=== PATIENT | male | born 1990 | race Caucasian/White ===

== ENCOUNTER 2016-12-11 10:09 | Emergency (ER) | payer SELFPAY ==
[~2016-12-11] VITALS: Ht 180.3 cm; Wt 78.0 kg
[~2016-12-11 10:09] MED LIST: BACT800T5 PO
[2016-12-11 10:21] VITALS: BP 132/69; PULSE 72; RESP 13; TEMP 98.9; O2SAT 98
[2016-12-11 10:46] LABS: AUTOMATED NEUTROPHIL # 6.7 TH/MM3 (1.8-7.7); BASOPHIL # 0.1 TH/MM3 (0-0.2); BASOPHIL % 0.6 % (0.0-2.0); EOSINOPHIL # 0.3 TH/MM3 (0-0.4); EOSINOPHIL % 3.4 % (0.0-4.0); HEMATOCRIT 41.8 % (39.0-51.0); HEMO FLAGS DIFF FINAL; LYMPHOCYTE # 1.5 TH/MM3 (1.0-4.8); MEAN CELL VOLUME 84.2 FL (80.0-100.0); MEAN CORPUSCULAR HEMOGLOBIN 29.7 PG (27.0-34.0); MEAN CORPUSCULAR HGB CONC 35.3 % (32.0-36.0); MONO % 10.5 % (0.0-8.0); NEUT % 69.5 % (16.0-70.0); PLATELET COUNT 297 TH/MM3 (150-450); RED BLOOD COUNT 4.96 MIL/MM3 (4.50-5.90); RED CELL DISTRIBUTION WIDTH 13.1 % (11.6-17.2); WHITE BLOOD COUNT 9.6 TH/MM3 (4.0-11.0)
[2016-12-11 11:11] LABS: ALT (GPT) 67 U/L (12-78); ANION GAP 7 MEQ/L (5-15); AST (GOT) 32 U/L (15-37); BICARBONATE 27.2 MEQ/L (21.0-32.0); BLOOD UREA NITROGEN 25 MG/DL (7-18); CHLORIDE 105 MEQ/L (98-107); GLOMERULAR FILTRATION RATE 95 ML/MIN (>89); POTASSIUM 4.1 MEQ/L (3.5-5.1); SODIUM (NA) 139 MEQ/L (136-145)
[2016-12-11 11:13] LABS: ALCOHOL LESS THAN 3 MG/DL (0-5)
[2016-12-11 11:14] LABS: ALKALINE PHOSPHATASE 114 U/L (45-117); TOTAL BILIRUBIN ADULT 0.4 MG/DL (0.2-1.0)
--- NOTE | 2016-12-11 11:34 | PD ---
HPI Chief Complaint: Psychiatric Symptoms Time Seen by Provider: 10:18 Travel History International Travel<30 days: No Contact w/Intl Traveler<30days: No Traveled to known affect area: No History of Present Illness HPI This is a 26-year-old male who presents to the emergency department having reportedly told police that he was depressed and wanted to drive a car into the river. The patient reports that he hasn't slept all night as he was binging on cocaine and heroin. He says he is not depressed and doesn't want to kill himself and he just needs to get some sleep. He has evidently been under a lot of stress because he lost custody of his son. PFSH Past Medical History Medical History: Denies Significant Hx Anxiety: No Depression: No Cardiovascular Problems: No Gastrointestinal Disorders: No Genitourinary: No Musculoskeletal: No Neurologic: No Psychiatric: No Reproductive: No Respiratory: No Thyroid Disease: Yes (HYPOTHRYOIDISM) Tetanus Vaccination: Unknown Past Surgical History Surgical History: No Previous Surgery Social History Alcohol Use: Yes ("WEEKENDS") Tobacco Use: Yes (1 PPD) Substance Use: Yes (IV COCAINE, MORPHINE, OXYCODONE 01/20: STATES: MARIJUANA ONCE A WEEK) Allergies-Medications (Allergen,Severity, Reaction): Coded Allergies: No Known Allergies (Verified , 12/11/16) Reported Meds & Prescriptions Reported Meds & Active Scripts Active No Active Prescriptions or Reported Medications Review of Systems Except as stated in HPI: all other systems reviewed are Neg Physical Exam Narrative GENERAL:Well appearing, no acute distress SKIN: Focused skin assessment warm and dry. HEAD: Atraumatic. Normocephalic. EYES: Pupils equal and round. No injection or drainage. ENT: Moist mucous membranes NECK: Trachea midline. CARDIOVASCULAR: Regular rate and rhythm. No murmur appreciated. RESPIRATORY: Clear to auscultation. Breath sounds equal bilaterally. GASTROINTESTINAL: Abdomen soft, non-tender, nondistended. MUSCULOSKELETAL: No obvious deformities. NEUROLOGICAL: Awake and alert. No obvious cranial nerve deficits. Moving all extremities. PSYCHIATRIC: Appropriate mood and affect; insight and judgment normal. Data Data Last Documented VS Vital Signs Date Time Temp Pulse Resp B/P (MAP) Pulse Ox O2 Delivery O2 Flow Rate FiO2 12/11/16 13:33 80 15 143/69 (93) 100 Room Air 12/11/16 10:21 98.9 Orders Orders Complete Blood Count With Diff (12/11/16 10:18) Comprehensive Metabolic Panel (12/11/16 10:18) Alcohol (Ethanol) (12/11/16 10:18) Drug Screen, Random Urine (12/11/16 10:18) Psych Screen (12/11/16 11:07) Labs Laboratory Tests Test 12/11/16 10:33 12/11/16 13:50 White Blood Count 9.6 TH/MM3 Red Blood Count 4.96 MIL/MM3 Hemoglobin 14.7 GM/DL Hematocrit 41.8 % Mean Corpuscular Volume 84.2 FL Mean Corpuscular Hemoglobin 29.7 PG Mean Corpuscular Hemoglobin Concent 35.3 % Red Cell Distribution Width 13.1 % Platelet Count 297 TH/MM3 Mean Platelet Volume 8.1 FL Neutrophils (%) (Auto) 69.5 % Lymphocytes (%) (Auto) 16.0 % Monocytes (%) (Auto) 10.5 % Eosinophils (%) (Auto) 3.4 % Basophils (%) (Auto) 0.6 % Neutrophils # (Auto) 6.7 TH/MM3 Lymphocytes # (Auto) 1.5 TH/MM3 Monocytes # (Auto) 1.0 TH/MM3 Eosinophils # (Auto) 0.3 TH/MM3 Basophils # (Auto) 0.1 TH/MM3 CBC Comment DIFF FINAL Differential Comment Blood Urea Nitrogen 25 MG/DL Creatinine 0.96 MG/DL Random Glucose 111 MG/DL Total Protein 7.0 GM/DL Albumin 3.5 GM/DL Calcium Level 8.7 MG/DL Alkaline Phosphatase 114 U/L Aspartate Amino Transf (AST/SGOT) 32 U/L Alanine Aminotransferase (ALT/SGPT) 67 U/L Total Bilirubin 0.4 MG/DL Sodium Level 139 MEQ/L Potassium Level 4.1 MEQ/L Chloride Level 105 MEQ/L Carbon Dioxide Level 27.2 MEQ/L Anion Gap 7 MEQ/L Estimat Glomerular Filtration Rate 95 ML/MIN Ethyl Alcohol Level LESS THAN 3 MG/DL Urine Opiates Screen POS Urine Barbiturates Screen NEG Urine Amphetamines Screen NEG Urine Benzodiazepines Screen NEG Urine Cocaine Screen POS Urine Cannabinoids Screen NEG MDM Medical Decision Making Medical Screen Exam Complete: Yes Emergency Medical Condition: Yes Differential Diagnosis Adjustment reaction, substance induced mood disorder, depression Narrative Course This is a 26-year-old male who presents the emergency department under a Jasmine act by police because he told them he wanted to drive his car into a river. Patient denies this and says is not depressed he just is tired because he use drugs all night. I think patient is safe for discharge. I don't think he meets Jasmine act criteria. He has capacity to make his own decisions and he denies suicidal or homicidal ideation at this time. Patient was seen by psychiatry who agrees. Diagnosis Primary Impression: Substance induced mood disorder Patient Instructions: General Instructions Additional Instructions: Follow up with [facility] in regards to psychiatric or substance related issues at: [address] [place], [place] [id number] Med/Other Pt SpecificInfo: No Change to Meds Scripts No Active Prescriptions or Reported Meds Disposition: 01 DISCHARGE HOME Condition: Stable Jessica Hinson MD Dec 11, 2016 11:34
[2016-12-11 13:33] VITALS: BP 143/69; PULSE 80; RESP 15; O2SAT 100
--- NOTE | 2016-12-11 14:10 | PD ---
History of Present Illness Chief Complaint: Psychiatric Symptoms Time Seen by Provider: 14:00 Travel History International Travel<30 Days: No Contact w/Intl Traveler<30days: No Known affected area: No Legal Status Legal Status: Jasmine Act History of Present Illness: 26-year-old male brought in under a Jasmine act for making suicidal threats to law enforcement officers. Patient was apparently binging on cocaine and heroin last night and did not sleep all night. He was interviewed at bedside and is calm and pleasant and cooperative. He denies any suicidal or homicidal ideation , plan or intent. He is verbally portillo for safety and he is competent to do so. He has no psychotic symptoms and no cognitive impairment. He was offered treatment at [facility], to which she said yes. However he then asked if we were lifting his Jasmine act and once we told him we were, the patient stated he might just go home to his mother in [facility]. In either case, the patient's main problem is obviously drug abuse. Therefore he is being referred to [facility] voluntarily. [facility] Past Medical History Medical History: Denies Significant Hx Anxiety: No Depression: No Cardiovascular Problems: No Gastrointestinal Disorders: No Genitourinary: No Musculoskeletal: No Neurologic: No Psychiatric: No Reproductive: No Respiratory: No Thyroid Disease: Yes (HYPOTHRYOIDISM) Tetanus Vaccination: Unknown Past Surgical History Surgical History: No Previous Surgery Psychiatric History Psychiatric History Hx Psychiatric Treatment: Denies psychiatric tx. was in [facility] in [place], [place], and was seen by a psychiatrist once. Juvenile Offenders program - due to battery charges - states that Judge Jeffery sent him to the program. [facility] began with [facility] system at age 15. History of Inpatient Treatment: No Guns or firearms in home: No Social History Hx Alcohol Use: Yes ("WEEKENDS") Hx Tobacco Use: Yes (1 PPD) Hx Substance Use: Yes (IV COCAINE, MORPHINE, OXYCODONE 01/20: STATES: MARIJUANA ONCE A WEEK) Substance Use Type: Alcohol, Marijuana, Ecstasy, Nicotine/Cigarettes, Prescription Medications, Benzos (Valium,Xanax), Cocaine, Synth Opiates-Pain Pills, LSD-Mescaline, Other Other Substances Used: Mushrooms, K2 Hx of Substance Use Treatment: Yes Allergies-Medications (Allergen,Severity, Reaction): Coded Allergies: No Known Allergies (Verified , 12/11/16) Reported Meds & Prescriptions Reported Meds & Active Scripts Active No Active Prescriptions or Reported Medications Review of Systems Except as stated in HPI: all other systems reviewed are Neg Exam Alert: Yes [place]: Person, Place, Date, Situation Mood: Calm Affect: Appropriate Speech: Clear, Logical Eye Contact: Normal Memory Intact: Immediate, Recent, Remote Insight/Judgement Adequate MDM Medical Decision Making Medical Record Reviewed: Yes Assessment/Plan Medical record reviewed, patient interviewed at bedside and case discussed with nurse Abdirahman. Patient does not qualify for Jasmine act or involuntary psychiatric hospitalization. He is being discharged with a referral to [facility] for further drug abuse treatment. Orders Orders Complete Blood Count With Diff (12/11/16 10:18) Comprehensive Metabolic Panel (12/11/16 10:18) Alcohol (Ethanol) (12/11/16 10:18) Drug Screen, Random Urine (12/11/16 10:18) Psych Screen (12/11/16 11:07) Results Vital Signs Date Time Temp Pulse Resp B/P (MAP) Pulse Ox O2 Delivery O2 Flow Rate FiO2 12/11/16 13:33 80 15 143/69 (93) 100 Room Air 12/11/16 10:21 98.9 72 13 132/69 (90) 98 Room Air Laboratory Tests Test 12/11/16 10:33 12/11/16 13:50 White Blood Count 9.6 Red Blood Count 4.96 Hemoglobin 14.7 Hematocrit 41.8 Mean Corpuscular Volume 84.2 Mean Corpuscular Hemoglobin 29.7 Mean Corpuscular Hemoglobin Concent 35.3 Red Cell Distribution Width 13.1 Platelet Count 297 Mean Platelet Volume 8.1 Neutrophils (%) (Auto) 69.5 Lymphocytes (%) (Auto) 16.0 Monocytes (%) (Auto) 10.5 Eosinophils (%) (Auto) 3.4 Basophils (%) (Auto) 0.6 Neutrophils # (Auto) 6.7 Lymphocytes # (Auto) 1.5 Monocytes # (Auto) 1.0 Eosinophils # (Auto) 0.3 Basophils # (Auto) 0.1 CBC Comment DIFF FINAL Differential Comment Blood Urea Nitrogen 25 Creatinine 0.96 Random Glucose 111 Total Protein 7.0 Albumin 3.5 Calcium Level 8.7 Alkaline Phosphatase 114 Aspartate Amino Transf (AST/SGOT) 32 Alanine Aminotransferase (ALT/SGPT) 67 Total Bilirubin 0.4 Sodium Level 139 Potassium Level 4.1 Chloride Level 105 Carbon Dioxide Level 27.2 Anion Gap 7 Estimat Glomerular Filtration Rate 95 Ethyl Alcohol Level LESS THAN 3 Diagnosis Primary Impression: Adjustment disorder with mixed disturbance of emotions and conduct Additional Impression: Cocaine abuse Prescriptions No Active Prescriptions or Reported Meds Problem Qualifiers Edy Diaz MD Dec 11, 2016 14:10
== END 2016-12-11 14:38 | disposition home or self-care (01) ==
LOC: NEPD 10:09
DX: F19.94 Other psychoactive substance use, unspecified with psychoactive substance-induced mood disorder (principal); F43.25 Adjustment disorder with mixed disturbance of emotions and conduct; F14.10 Cocaine abuse, uncomplicated; E03.9 Hypothyroidism, unspecified; F17.200 Nicotine dependence, unspecified, uncomplicated
CPT/HCPCS: 80053; 80307; 85025; 99283